=== PATIENT | female | born 1975 | race Caucasian/White ===

== ENCOUNTER 2019-08-02 13:17 | Observation (INO) ==
[2019-08-02] MEDS ORDERED: Furosemide 40 MG/4 ML VIAL IVP ONE (14:14)
[2019-08-02 14:45] LABS: Basophils # 0.1 K/mcL (0.0-0.2); Basophils % 0.7 %; Eosinophils # 0.1 K/mcL (0.0-0.6); Eosinophils % 0.9 %; Hematocrit 47.9 % (35.3-44.9); Hemoglobin 14.8 g/dL (11.5-15.4); Immature Granulocytes % 0.6 % (0-4); Lymphocytes # 2.7 K/mcL (0.6-4.6); Lymphocytes % 20.6 %; Mean Corpuscular HGB Conc 30.9 g/dL (31.6-35.5); Mean Corpuscular Hemoglobin 26.6 pg (28.0-33.3); Mean Platelet Volume 9.1 fL (9.4-12.4); Monocytes # 0.9 K/mcL (0.0-1.3); Monocytes % 6.7 %; Neutrophils # 9.1 K/mcL (1.6-8.9); Platelet Count 291 K/mcL (140-400); Red Blood Count 5.57 M/mcL (3.82-4.97); Red Cell Distribution Width 15.4 % (11.5-14.5); Segmented Neutrophils % 70.5 %; White Blood Count 12.9 K/mcL (4.3-11.1)
[2019-08-02 15:08] LABS: BUN/Creatinine Ratio 16 (6-26); Blood Urea Nitrogen 15 mg/dL (6-20); Carbon Dioxide 29 mEq/L (23-29); Chloride 103 mEq/L (98-107); Glucose 137 mg/dL (70-105); Osmolality,Calculated 297 (280-300); Potassium 3.9 mEq/L (3.5-5.1); Sodium 142 mEq/L (136-145); eGFR For African Americans > 60 (> 60); eGFR For Non-African Americans > 60 (> 60)
[2019-08-02 15:21] LABS: Troponin I 0.07 ng/mL (< 0.04)
[2019-08-02] MEDS ORDERED: Aspirin 325 MG TABLET PO ONE (15:25)
[2019-08-02] MEDS: Insulin LISPRO 300 UNITS/3 ML VIAL SQ SCH (19:59)
[2019-08-02] MEDS: Apixaban 5 MG TABLET PO SCH (20:14)
[2019-08-02] MEDS: Furosemide 40 MG/4 ML VIAL IVP SCH (20:15)
[2019-08-03 05:54] LABS: Basophils # 0.1 K/mcL (0.0-0.2); Basophils % 0.7 %; Eosinophils # 0.2 K/mcL (0.0-0.6); Eosinophils % 1.9 %; Hematocrit 43.8 % (35.3-44.9); Hemoglobin 13.7 g/dL (11.5-15.4); Immature Granulocytes % 0.4 % (0-4); Lymphocytes # 3.3 K/mcL (0.6-4.6); Lymphocytes % 33.3 %; Mean Corpuscular HGB Conc 31.3 g/dL (31.6-35.5); Mean Corpuscular Hemoglobin 26.8 pg (28.0-33.3); Mean Corpuscular Volume 85.5 fL (83.0-100.0); Mean Platelet Volume 9.2 fL (9.4-12.4); Monocytes # 0.8 K/mcL (0.0-1.3); Monocytes % 8.5 %; Neutrophils # 5.5 K/mcL (1.6-8.9); Platelet Count 298 K/mcL (140-400); Red Blood Count 5.12 M/mcL (3.82-4.97); Red Cell Distribution Width 15.5 % (11.5-14.5); Segmented Neutrophils % 55.2 %; White Blood Count 9.9 K/mcL (4.3-11.1)
[2019-08-03 06:08] LABS: BUN/Creatinine Ratio 19 (6-26); Blood Urea Nitrogen 21 mg/dL (6-20); Calcium 8.6 mg/dL (8.6-10.3); Carbon Dioxide 28 mEq/L (23-29); Chloride 104 mEq/L (98-107); Glucose 192 mg/dL (70-105); Magnesium 1.9 mg/dL (1.6-2.6); Osmolality,Calculated 298 (280-300); Potassium 3.8 mEq/L (3.5-5.1); Sodium 140 mEq/L (136-145); eGFR For African Americans > 60 (> 60); eGFR For Non-African Americans 53 (> 60)
[2019-08-03] MEDS: Insulin LISPRO 300 UNITS/3 ML VIAL SQ SCH ×4 (10:05→20:25)
[2019-08-03] MEDS: Furosemide 40 MG/4 ML VIAL IVP SCH ×2 (10:06→16:41)
[2019-08-03] MEDS: Apixaban 5 MG TABLET PO SCH ×2 (10:07→20:40)
[2019-08-03] MEDS: Cholecalciferol (D-3) 1,000 UNIT (25MCG) TABLET PO SCH (10:07)
[2019-08-03] MEDS: Aspirin Enteric Coated 81 MG Tablet PO SCH (10:07)
[2019-08-03] MEDS: Loratadine 10 MG TABLET PO SCH (10:08)
[2019-08-03] MEDS ORDERED: Albumin 25% 25gram/100mL 25 GM/100 ML IV.SOLN IVPB ONE (10:32)
[2019-08-03 12:12] LABS: Estimated Average Glucose 255 mg/dl
[2019-08-04 03:29] LABS: Calcium 9.1 mg/dL (8.6-10.3); Potassium 3.6 mEq/L (3.5-5.1)
[2019-08-04] MEDS: Insulin LISPRO 300 UNITS/3 ML VIAL SQ SCH ×4 (09:02→20:54)
[2019-08-04] MEDS: Aspirin Enteric Coated 81 MG Tablet PO SCH (09:03)
[2019-08-04] MEDS: Loratadine 10 MG TABLET PO SCH (09:03)
[2019-08-04] MEDS: Apixaban 5 MG TABLET PO SCH ×2 (09:03→20:55)
[2019-08-04] MEDS: Cholecalciferol (D-3) 1,000 UNIT (25MCG) TABLET PO SCH (09:03)
[2019-08-04] MEDS: Albumin 25% 25gram/100mL 25 GM/100 ML IV.SOLN IVPB SCH ×3 (12:14→23:31)
[2019-08-04 12:17] LABS: Sodium, Urine 46.3 mEq/L
[2019-08-04 18:20] LABS: Potassium 4.1 mEq/L (3.5-5.1)
[2019-08-05 06:53] LABS: Calcium 9.3 mg/dL (8.6-10.3); Potassium 4.6 mEq/L (3.5-5.1)
[2019-08-05] MEDS: Albumin 25% 25gram/100mL 25 GM/100 ML IV.SOLN IVPB SCH (09:25)
[2019-08-05] MEDS: Cholecalciferol (D-3) 1,000 UNIT (25MCG) TABLET PO SCH (09:25)
[2019-08-05] MEDS: Insulin LISPRO 300 UNITS/3 ML VIAL SQ SCH ×4 (09:25→21:01)
[2019-08-05] MEDS: Aspirin Enteric Coated 81 MG Tablet PO SCH (09:26)
[2019-08-05] MEDS: Loratadine 10 MG TABLET PO SCH (09:26)
[2019-08-05] MEDS: Apixaban 5 MG TABLET PO SCH ×2 (09:26→21:08)
[2019-08-05 20:34] LABS: Bilirubin,Urine Negative (Negative); Blood,Urine Negative (Negative); Clarity,Urine Cloudy (Clear); Color,Urine Yellow (Yellow); Glucose,Urine (UA) Normal (Normal); Ketones,Urine Negative (Negative); Leukocyte Esterase,Urine Negative (Negative); Nitrite,Urine Negative (Negative); Protein,Urine >=300 mg/dL (Neg-Trace); Specific Gravity,Urine 1.016 (1.010-1.025); Urobilinogen,Urine Normal (Normal)
[2019-08-05 20:36] LABS: Bacteria,Urine Moderate per hpf (None-Few); Hyaline Casts,Urine None Seen per lpf (None-Few); RBC,Urine 15-30 per hpf (0-3); Squamous Epithelial Cell,Urine Many per lpf (None-Few)
[2019-08-06 02:49] LABS: BUN/Creatinine Ratio 22 (6-26); Blood Urea Nitrogen 25 mg/dL (6-20); Calcium 9.4 mg/dL (8.6-10.3); Carbon Dioxide 27 mEq/L (23-29); Chloride 102 mEq/L (98-107); Glucose 191 mg/dL (70-105); Osmolality,Calculated 298 (280-300); Potassium 4.3 mEq/L (3.5-5.1); Sodium 139 mEq/L (136-145); eGFR For African Americans > 60 (> 60); eGFR For Non-African Americans 51 (> 60)
[2019-08-06] MEDS: Insulin LISPRO 300 UNITS/3 ML VIAL SQ SCH (08:52)
[2019-08-06] MEDS: Cholecalciferol (D-3) 1,000 UNIT (25MCG) TABLET PO SCH (08:53)
[2019-08-06] MEDS: Aspirin Enteric Coated 81 MG Tablet PO SCH (08:53)
[2019-08-06] MEDS: Loratadine 10 MG TABLET PO SCH (08:53)
[2019-08-06] MEDS: Apixaban 5 MG TABLET PO SCH (08:53)
[2019-08-06 11:31] VITALS: BP 169/127
== END 2019-08-06 14:40 | disposition home or self-care (01) ==
LOC: 3BNU 13:17 → EMEROOARM 13:17 → SUATTDRO 16:10 → 3BNU 17:13
PROVIDERS: ADMIT Internal Medicine; ATTEND Internal Medicine